=== PATIENT | female | born 1985 | race Asian ===

== ENCOUNTER 2016-11-08 00:45 | Inpatient (IN) | payer OTHER ==
[~2016-11-08] VITALS: Ht 152.4 cm; Wt 49.0 kg
[2016-11-08 01:35] LABS: BASOPHILS # (AUTO) 0.1 K/uL (0.00-0.22); BASOPHILS % (AUTO) 0.6 % (0.0-2.0); EOSINOPHILS # (AUTO) 0.3 K/uL (0-0.4); EOSINOPHILS % (AUTO) 2.5 % (0.0-4.0); HEMOGLOBIN 11.6 g/dL (12.0-16.0); LYMPHOCYTES # (AUTO) 1.8 K/uL (2.5-16.5); LYMPHOCYTES % (AUTO) 15.7 % (20.5-51.1); MEAN CORPUSCULAR HEMOGLOBIN 26 pg (27-31); MEAN CORPUSCULAR HGB CONC 33 g/dL (33-37); MEAN CORPUSCULAR VOLUME 78 fL (80-94); MONOCYTES # (AUTO) 0.7 K/uL (0.8-1.0); MONOCYTES % (AUTO) 6.5 % (1.7-9.3); NEUTROPHILS # (AUTO) 8.6 K/uL (1.8-7.7); NEUTROPHILS % (AUTO) 74.7 % (42.2-75.2); PLATELET COUNT (AUTO) 218 K/uL (140-450); RED BLOOD CELL COUNT(AUTO) 4.52 MIL/uL (4.20-5.40); RED CELL DISTRIBUTION WIDTH 15.8 % (11.6-13.7); WHITE BLOOD COUNT (AUTO) 11.5 K/uL (4.8-10.8)
[2016-11-08] MEDS: LACTATED RINGERS 1,000 ML IV SCH ×2 (01:50→02:44)
[2016-11-08 01:59] LABS: ALBUMIN 2.5 g/dL (3.4-5.0); ANION GAP 15.6 (8-16); CALCIUM 9.1 mg/dL (8.5-10.1); CARBON DIOXIDE 22.4 mmol/L (21-32); CREATININE 0.5 mg/dL (0.6-1.3); TOTAL BILIRUBIN 0.2 mg/dL (0.0-1.0); TOTAL PROTEIN, SERUM 6.6 g/dL (6.4-8.2)
[2016-11-08 02:04] LABS: APPEARANCE,URINE CLEAR (CLEAR); BILIRUBIN,URINE NEGATIVE (NEGATIVE); BLOOD, URINE TRACE (NEGATIVE); COLOR,URINE YELLOW (YELLOW); LEUKOCYTE ESTERASE ,URINE TRACE (NEGATIVE); NITRITE, URINE NEGATIVE (NEGATIVE); PH,URINE 6.5 (5.0-9.0); PROTEIN,URINE TRACE (NEGATIVE); UGLUCOSE NEGATIVE (NEGATIVE); UROBILINOGEN,URINE 0.2 EU/dL (0.2 - 1)
[2016-11-08 02:05] LABS: BACTERIA,URINE 1+ /HPF (None Seen); RBC,URINE 0-3 /HPF (0-5)
[2016-11-08] MEDS ORDERED: CITRIC ACID/SODIUM CITRATE 30 ML UDC PO SCH (02:20)
[2016-11-08 03:10] VITALS: BP 116/59
[2016-11-08] MEDS ORDERED: PREN-546 PO (03:20)
[2016-11-08] MEDS ORDERED: CITRIC ACID/SODIUM CITRATE 30 ML UDC ONE (05:08)
[2016-11-08] MEDS ORDERED: ceFAZolin 1,000 MG VIAL ONE (05:08)
[2016-11-08] MEDS ORDERED: TRIAMCINOLONE 40 MG/ML 5ML VIAL ONE (05:55)
[2016-11-08] MEDS ORDERED: ePHEDrine 50 MG/ML VIAL ONE (05:55)
[2016-11-08] MEDS ORDERED: BUPIVACAINE-MPF 0.75% 10 ML VIAL INJ ONE (05:55)
[2016-11-08] MEDS ORDERED: OXYTOCIN 10 UNITS/ML VIAL ONE ×2 (05:55→05:56)
[2016-11-08] MEDS ORDERED: METHYLERGONOVINE 0.2 MG/ML AMP ONE (05:59)
[2016-11-08] MEDS ORDERED: fentaNYL 0.05 MG/ML VIAL ONE (06:07)
[2016-11-08] MEDS ORDERED: KETAMINE 500 MG/5 ML VIAL ONE (06:08)
[2016-11-08] MEDS ORDERED: MORPHINE PRES FREE 10 MG/10 ML AMP IV ONE (06:08)
[2016-11-08] MEDS ORDERED: MIDAZOLAM 2 MG/2 ML VIAL ONE (06:08)
[2016-11-08] MEDS ORDERED: IBUPROFEN 800 MG TAB PO PRN (06:20)
[2016-11-08] MEDS ORDERED: HYDROcodone/APAP 5/325 MG 1 TAB TAB PO PRN (06:20)
[2016-11-08] MEDS ORDERED: TRIMETHOBENZAMIDE 200 MG/2 ML SYR IM PRN (06:20)
[2016-11-08] MEDS ORDERED: SIMETHICONE 80 MG TAB.CHEW PO PRN (06:20)
[2016-11-08] MEDS ORDERED: oxyCODONE/APAP 5/325 MG 1 TAB TAB PO PRN (06:20)
[2016-11-08] MEDS ORDERED: TEMAZEPAM 15 MG CAP PO PRN (06:20)
[2016-11-08] MEDS ORDERED: MEASLES, MUMPS, AND RUBELLA 1 VIAL SQVAC PRN (06:20)
[2016-11-08] MEDS ORDERED: METHYLERGONOVINE 0.2 MG/ML AMP IM PRN (06:20)
[2016-11-08] MEDS ORDERED: KETOROLAC 30 MG/ML VIAL IVP PRN (06:45)
[2016-11-08] MEDS ORDERED: diphenhydrAMINE 50 MG/ML VIAL IVP PRN (06:45)
[2016-11-08] MEDS: OXYTOCIN 20 UNITS/LR PREMIX 1,000 ML IV SCH ×4 (07:06→19:53)
[2016-11-08] MEDS ORDERED: OXYTOCIN 20 UNITS/LR PREMIX 1,000 ML IV ONE (07:55)
--- NOTE | 2016-11-08 09:21 | NUR ---
PATIENT HAS BEEN SCREENED AND CATEGORIZED LOW NUTRITION RISK. PATIENT WILL BE SEEN WITHIN 7 DAYS OF ADMISSION. 11/14/[address]
[2016-11-08] MEDS: ONDANSETRON 4 MG/2 ML VIAL IVP PRN ×2 (11:32→17:01)
[2016-11-08] MEDS: DOCUSATE SOD/SENNA 50/8.6 MG 1 TAB PO SCH (21:00)
[2016-11-09] MEDS: OXYTOCIN 20 UNITS/LR PREMIX 1,000 ML IV SCH (04:15)
[2016-11-09 06:02] LABS: BASOPHILS % (AUTO) 0.2 % (0.0-2.0); EOSINOPHILS # (AUTO) 0.2 K/uL (0-0.4); EOSINOPHILS % (AUTO) 1.5 % (0.0-4.0); HEMATOCRIT 28.8 % (36-48); HEMOGLOBIN 9.5 g/dL (12.0-16.0); LYMPHOCYTES # (AUTO) 1.1 K/uL (2.5-16.5); LYMPHOCYTES % (AUTO) 7.2 % (20.5-51.1); MEAN CORPUSCULAR HEMOGLOBIN 26 pg (27-31); MEAN CORPUSCULAR HGB CONC 33 g/dL (33-37); MEAN CORPUSCULAR VOLUME 78 fL (80-94); MONOCYTES % (AUTO) 6.4 % (1.7-9.3); NEUTROPHILS # (AUTO) 12.8 K/uL (1.8-7.7); NEUTROPHILS % (AUTO) 84.7 % (42.2-75.2); PLATELET COUNT (AUTO) 179 K/uL (140-450); RED BLOOD CELL COUNT(AUTO) 3.68 MIL/uL (4.20-5.40); RED CELL DISTRIBUTION WIDTH 15.6 % (11.6-13.7)
[2016-11-09 06:50] LABS: WHITE BLOOD COUNT (AUTO) 15.1 K/uL (4.8-10.8)
[2016-11-09] MEDS: IBUPROFEN 800 MG TAB PO PRN ×2 (09:37→16:08)
[2016-11-09] MEDS: DOCUSATE SOD/SENNA 50/8.6 MG 1 TAB PO SCH (20:52)
[2016-11-10] MEDS: IBUPROFEN 800 MG TAB PO PRN (09:52)
[2016-11-10] MEDS ORDERED: IBUP-2213 PO (11:10)
== END 2016-11-10 15:00 | disposition home or self-care (01) | DRG 766 ==
LOC: MLD 00:45 → MFCC 09:34
PROVIDERS: ADMIT Obstetrics & Gynecology; ATTEND Obstetrics & Gynecology
PROC: 10D00Z1 Extraction of Products of Conception, Low, Open Approach (ICD-10-PCS; principal; 2016-11-08 06:00)
DX: O36.63X0 Maternal care for excessive fetal growth, third trimester, not applicable or unspecified (principal); Z3A.39 39 weeks gestation of pregnancy; Z37.0 Single live birth; Z28.21 Immunization not carried out because of patient refusal
CPT/HCPCS: 36415; 51702; 80053; 81001; 85025; 86592; 86886; 86900; 86901; 87086; J0690; J2210; J2250; J2270; J2405; J2590; J3010; J3301; J3490; J7120